=== PATIENT | male | born 1975 | race Hispanic/Latino ===

== ENCOUNTER 2017-08-01 15:01 | Emergency (ER) | payer MEDICAID ==
--- NOTE | 2017-08-01 15:39 | ED PDOC ---
HPI: Hypertension/Hypotension Time Seen by Provider: 08/01/17 15:17 Chief Complaint (Nursing): Dizziness/Lightheaded Chief Complaint (Provider): Dizziness/Lightheaded History Per: Patient History/Exam Limitations: no limitations Onset/Duration Of Symptoms: Hrs (x 1) Current Symptoms Are (Timing): Still Present Associated Symptoms: Dizziness Quality Of Symptoms: Rapid Heart Rate Additional Complaint(s): 41 year old male presents to the ED with palpitations and uncontrollable leg tremors that began 1 hour ago. Patient reports he has been working long hours without much sleep in the last 2 days or so. He admits to drinking 5-6 beers a day with that number nearly doubling in the last two weeks. Patient agrees that he has alcohol problem and was trying to taper off. His last drink was last night at 7:30 pm. He also uses a natural supplement derived from green tea called Theanine to manage his stress and anxiety. PMD: none provided Past Medical History Reviewed: Historical Data, Nursing Documentation, Vital Signs Vital Signs: Last Vital Signs Temp 99 F 08/01/17 15:03 Pulse 103 H 08/01/17 15:03 Resp 16 08/01/17 15:03 BP 144/98 H 08/01/17 15:03 Pulse Ox 99 08/01/17 15:03 - Medical History PMH: No Chronic Diseases - Surgical History Surgical History: No Surg Hx - Family History Family History: States: Unknown Family Hx - Allergies Allergies/Adverse Reactions: Allergies Allergy/AdvReac Type Severity Reaction Status Date / Time No Known Allergies Allergy Verified 08/01/17 15:03 Review of Systems ROS Statement: Except As Marked, All Systems Reviewed And Found Negative Cardiovascular: Positive for: Palpitations Physical Exam - Reviewed Nursing Documentation Reviewed: Yes Vital Signs Reviewed: Yes - Physical Exam Appears: Positive for: Non-toxic, No Acute Distress Head Exam: Positive for: ATRAUMATIC, NORMOCEPHALIC Skin: Positive for: Normal Color, Warm, Dry Eye Exam: Positive for: EOMI, Normal appearance, PERRL Neck: Positive for: Normal, Painless ROM Cardiovascular/Chest: Positive for: Regular Rate, Rhythm. Negative for: Murmur Respiratory: Positive for: Normal Breath Sounds. Negative for: Respiratory Distress Gastrointestinal/Abdominal: Positive for: Normal Exam, Soft Extremity: Positive for: Normal ROM. Negative for: Deformity Neurologic/Psych: Positive for: Alert, Oriented. Negative for: Motor/Sensory Deficits - Laboratory Results Result Diagrams: 08/01/17 16:04 08/01/17 16:04 - ECG O2 Sat by Pulse Oximetry: 99 (RA) Pulse Ox Interpretation: Normal Medical Decision Making Medical Decision Making: Time: 15:28 Initial Plan: --EKG --Acetaminophen --Alcohol serum --BMP --Urine drug --Salicylate --CBC --Multivitamin, Thiamine, Folic acid IV 1,000 mls/hr --UA Scribe Attestation: Documented by Apurva Ellis, acting as a scribe for Mere Smith MD Provider Scribe Attestation: All medical record entries made by the Scribe were at my direction and personally dictated by me. I have reviewed the chart and agree that the record accurately reflects my personal performance of the history, physical exam, medical decision making, and the department course for this patient. I have also personally directed, reviewed, and agree with the discharge instructions and disposition. Disposition - Clinical Impression Clinical Impression: Alcohol dependence, Anxiety - Patient ED Disposition Is Patient to be Admitted: Transfer of Care - Disposition Disposition: Transfer of Care Disposition Time: 16:42 Condition: IMPROVED Instructions: Anxiety, Adult (DC), Alcohol Abuse and Alcoholism (DC) Forms: [employer] (Bel[place]ian) Patient Signed Over To: Scott Mckeon Present On Arrival: None
[2017-08-01 16:08] LABS: BASO % 0.6 % (0.0-2.0); EOS # 0.1 K/uL (0.0-0.7); EOS % 1.2 % (0.0-4.0); HEMOGLOBIN 14.9 g/dL (12.0-18.0); LYMPH # 1.3 K/uL (1.0-4.3); LYMPH % 23.3 % (20.0-40.0); MEAN CELL VOLUME 95.4 fl (80.0-94.0); MEAN CORPUSCULAR HEMOGLOBIN 32.6 pg (27.0-31.0); MEAN CORPUSCULAR HGB CONC 34.2 g/dL (33.0-37.0); MEAN PLATELET VOLUME 6.8 fl (7.2-11.7); MONO # 0.5 K/uL (0.0-0.8); MONO % 8.9 % (0.0-10.0); NEUT # 3.8 K/uL (1.8-7.0); NRBC % 0.1 % (0.0-0.0); RBC 4.58 Mil/uL (4.40-5.90); RED CELL DISTRIBUTION WIDTH 12.6 % (11.5-14.5); WHITE BLOOD COUNT 5.7 K/uL (4.8-10.8)
[2017-08-01] MEDS: Multivitamin (MVI) 10 ML, Thiamine 100 MG, Folic Acid 1 MG in Dextrose 5%/0.45% NS 1,00... IV ONE ×2 (16:13→16:28)
[2017-08-01 16:20] LABS: ACETAMINOPHEN < 10.0 ug/ml (10.0-30.0); SALICYLATE < 1.0 mg/dl
[2017-08-01 16:21] LABS: BLOOD UREA NITROGEN 11 mg/dl (9-20); CALCIUM 9.2 mg/dL (8.4-10.2); GFR AFRICAN-AMERICAN > 60; GFR NON-AFRICAN AMERICAN > 60
[2017-08-01] MEDS ORDERED: Multivitamin (MVI) 10 ML, Thiamine 100 MG, Folic Acid 1 MG in Dextrose 5%/0.45% NS 1,00... IV ONE (16:30)
[2017-08-01 16:44] LABS: SQUAMOUS EPITHIAL < 1 /hpf (0-5); URINE BILIRUBIN NEGATIVE (NEGATIVE); URINE BLOOD MODERATE (NEGATIVE); URINE CLARITY CLEAR (Clear); URINE COLOR YELLOW (YELLOW); URINE GLUCOSE (UA) NEG (Normal); URINE LEUKOCYTE ESTERASE NEG Leu/uL (Negative); URINE PROTEIN NEGATIVE (NEGATIVE); URINE UROBILINOGEN 0.2-1.0 mg/dL (0.2-1.0)
[2017-08-01 16:55] LABS: BARBITURATES, UR NEGATIVE (NEGATIVE); BENZODIAZEPINES, UR NEGATIVE (NEGATIVE); OPIATES, UR NEGATIVE (NEGATIVE); PHENCYCLIDINE, UR NEGATIVE (NEGATIVE)
[2017-08-01 16:58] LABS: URINE AMORPHOUS SEDIMENT FEW /ul (<OCC); URINE BACTERIA FEW (<OCC)
--- NOTE | 2017-08-01 17:01 | ED PDOC ---
- Laboratory Results Result Diagrams: 08/01/17 16:04 08/01/17 16:04 Interpretation Of Abn Labs: no acute - ECG O2 Sat by Pulse Oximetry: 99 (RA) Pulse Ox Interpretation: Normal - Progress ED Course And Treament: 1700: Took over care from Dr. Smith. Fu on pt. symptoms. Here with shaking from not drinking alcohol since 730pm last night. 1953: Stable. AAOx3. Pain free. Tolerated PO. No shaking. Pt. needs to fu with pcp. Disposition - Clinical Impression Clinical Impression: Alcohol dependence - POA Present On Arrival: None - Disposition Referrals: [facility] [Outside] - 08/02/17 Disposition: Routine/Home Disposition Time: 20:00 Condition: IMPROVED Additional Instructions: Return if not better in 3 days. Instructions: Anxiety, Adult (DC), Alcohol Abuse and Alcoholism (DC)
[2017-08-01 18:18] VITALS: TEMP 98.8
[2017-08-01 20:16] VITALS: O2SAT 100
[2017-08-01 20:17] VITALS: BP 145/88; PULSE 77; RESP 18
--- NOTE | 2017-08-02 17:20 | CARD ---
APPROVED REPORT EKG Measurement Heart [id number] <Conclusion> Normal sinus rhythm with sinus arrhythmia Normal ECG
== END 2017-08-01 20:16 | disposition home or self-care (01) ==
LOC: H.ER 15:01
DX: F10.20 Alcohol dependence, uncomplicated (principal); F41.9 Anxiety disorder, unspecified; I10 Essential (primary) hypertension
CPT/HCPCS: 80048; 80320; 80324; 80329; 80345; 80346; 80349; 80353; 80358; 80361; 81003; 82948; 83992; 85025; 93005; 96374; 99285; J3411; J7042